=== PATIENT | male | born 1970 | race Hispanic/Latino ===

== ENCOUNTER 2018-02-24 09:39 | Outpatient (CLI) | payer OTHER ==
[2018-02-24] MEDS ORDERED: Iopamidol 370 76% 100 ML VIAL ONE (13:08)
--- NOTE | 2018-02-24 14:03 | CT ---
ABDOMEN AND PELVIS CT SCAN WITH IV CONTRAST: HISTORY: A 47-year-old male with a history of intestinal adhesions. Prior history of multiple small bowel obs tructions with increased pain and nausea. FINDINGS: The lung bases are clear. The visualized liver, gallbladder, pancreas, spleen, and adrenal glands ar e unremarkable. No renal calculus or evidence for obstruction. Small, fat-containing left inguin al hernia. There are several focally dilated but not obstructive appearing small bowel loops in the left lateral abdomen with dilatation up to approximately 4 cm. Contrast extends through these easily before entering the colon with a normal appearing terminal ileum. No abscess, adenopathy, or abnorm al fluid collection. IMPRESSION: 1. Some minimal focally dilated loops of small bowel in the left abdomen, probably either distal jej unum or more proximal ileum, with dilatation up to 4 cm, but without evidence for any type of signifi cant obstruction. 2. Normal appearing terminal ileum. 3. No evidence for other significant acute process in the abdomen or pelvis. POS: [facility]
== END 2018-02-24 09:40 | disposition home or self-care (01) ==
LOC: TBSIIMAG 09:39
PROVIDERS: ATTEND Surgery
DX: K56.609 Unspecified intestinal obstruction, unspecified as to partial versus complete obstruction (principal); K66.0 Peritoneal adhesions (postprocedural) (postinfection)
CPT/HCPCS: 74177

== ENCOUNTER 2025-10-14 13:03 | Outpatient (CLI) | payer BC ==
[2025-10-14 13:59] LABS: #Basophils 0.08 10x3/uL (0.0-0.2); #Eosinophils 0.15 10x3/uL (0.0-0.7); #Monocytes 0.78 10x3/uL (0.11-0.59); #Neutrophils 4.66 10x3/uL (1.40-6.50); %Basophils 0.9 % (0.0-1.0); %Eosinophils 1.7 % (0.0-10.0); %Lymphocytes 36.5 % (21.0-51.0); %Monocytes 8.7 % (0.0-10.0); %Neutrophils 52.1 % (42.0-75.0); Hematocrit 45.4 % (42.0-52.0); Hemoglobin 15.6 g/dL (14.0-18.0); Mean Corpuscular Hemoglobin 31.3 pg (27.0-31.0); Mean Corpuscular Volume 91.0 fL (78.0-98.0); Platelet Count 295 10x3/uL (130-400); Red Blood Cell (RBC) Count 4.99 mill/uL (4.70-6.10); White Blood Cell (WBC) Count 8.94 10x3/uL (4.8-10.8)
[2025-10-14 14:16] LABS: Anion Gap 15 mmol/L (10-20); BUN (Urea Nitrogen) 11 mg/dL (8.4-25.7); Calc. Creatinine Clearance 0 mL/min (70-130); Calcium 9.4 mg/dL (7.8-10.44); Carbon Dioxide 22 mmol/L (22-29); Chloride 105 mmol/L (98-107); Glucose 86 mg/dL (70-105); Potassium 3.9 mmol/L (3.5-5.1); Sodium 138 mmol/L (136-145)
== END 2025-10-14 13:04 | disposition home or self-care (01) ==
LOC: LABBT 13:03
PROVIDERS: ATTEND Orthopaedic Surgery
DX: Z01.812 Encounter for preprocedural laboratory examination (principal); M75.120 Complete rotator cuff tear or rupture of unspecified shoulder, not specified as traumatic
CPT/HCPCS: 80048; 85025